=== PATIENT | male | born 1975 | race Caucasian/White ===

== ENCOUNTER 2020-12-07 00:56 | Observation (INO) | payer BC ==
--- OUTSIDE RECORDS SUMMARY | 2020-12-07 00:59 | XMS REPORT | Continuity of Care Document ---
:1975 Author Organization [facility] t Address [address] [place] [address] Care Team Providers Name Role Phone Martinez Suh Attending Clinician Patience Cantu Attending Clinician MS Mela CEE Attending Clinician Unavailable MS Mela CEE Admitting Clinician Unavailable Problems Condition Condition Condition Status Onset Resolution Last Treating Co mments Source Name Details Category Date Date Treatment Clinician Date UNK Diagnosis Active 2020-11-30 Mem oria 2-09 06:53:00 l UNK 00:00: [place] 00 Active 11/10/2020 [place] N20.0 Diagnosis Active 2020-11-11 Mem oria 2-04 10:10:00 l N20.0 00:00: Ian 00 Active 11/05/2020 [place] N20 - Diagnosis Active 2019-102020-10-03 Mem oria CALCULUS 1-25 15:55:00 l OF KIDNEY N20 - 00:01: Ryan n AND URETER CALCULUS 00 599. OF KIDNEY AND URETER 599. Active 08/26/2020 OPID [facility] Benign Problem Resolve 2020-12-07 Wily guzman hypertensi d 01:42:28 l ve renal Benign Ryan n disease hypertensi (disorder) ve renal disease (disorder) [facility] Active 2020-12-07 Memor ia stone 01:42:28 l (disorder) Kidney Herm cristin stone (disorder) Active Problem 12/07/2020 Medical [facility] Leukemia, Problem Active 2020-12-07 Me moria disease 01:42:28 l (disorder) Ryan n Leukemia, disease (disorder) Active Problem 12/07/2020 Medical [facility] Sleep Problem Active 2020-12-07 Memor ia apnea 01:42:28 l (finding) Sleep Ryan n apnea (finding) Active Problem 12/07/2020 Medical Group[facility] Allergies, Adverse Reactions, Alerts Allergy Allergy Status Severity Reaction(s) Onset Inactive Treating Comm ents Source Name Type Date Date Clinician No Known No Known Active Memori a Medicati Medicati l on on Ian Allergie Allergie s s Social History Social Habit Start Date Stop Date Quantity Comments Source Social History 2020-11-30 2020-11-30 [facility] 13:50:43 13:50:43 Medications Ordered Filled Start Stop Current Ordering Indication Dosage Frequency Signature Comments Components Source Medication Medication Date Date Medication? Clinician (SIG) Name Name ciprofloxac Yes 500 mg = 1 Memoria in 500 mg 3-05 tab, PO, l oral tablet 15:48: Q12H, for ermann 00 UTI, X 3 day, # 6 tab, 0 Refill(s), Pharmacy: [facility] Pharm[facility] [place], 180.34, cm, 11/11/20 15:17:00 CAR REPOSSESSOR, Height, 101.96, kg, 11/11/20 15:17:00 CAR REPOSSESSOR, Weight Ketorolac No 10 mg = 1 Mem oria Tromethamin 3-05 tab, PO, l e 10 MG 15:48: TID, X 2 Ryan n Oral Tablet 00 day, # 6 tab, 0 Refill(s), Pharmacy: [facility], 180.34, cm, 11/11/20 15:17:00 CAR REPOSSESSOR, Height, 101.96, kg, 11/11/20 15:17:00 CAR REPOSSESSOR, Weight Oxycodone No 10 mg, Memori a Hydrochlori 3-01 Route: PO, l de 5 MG 16:31: Drug form: Herm cristin Oral Tablet 00 TAB, ONCE, Dosing Weight 101.96, kg, PRN Pain Score 7-10, Start date: 11/30/20 10:31:00 CAR REPOSSESSOR oxybutynin Yes 10 mg = 1 Me moria 10 mg oral 3-01 tab, PO, l tablet, 15:47: Daily, # Ryan n extended 00 30 tab, 0 release Refill(s), Pharmacy: [facility], 180.34, cm, 11/11/20 15:17:00 CAR REPOSSESSOR, Height, 101.96, kg, 11/11/20 15:17:00 CAR REPOSSESSOR, Weight Docusate Yes 100 mg = 1 Mem oria Sodium 100 3 cap, PO, l MG Oral 15:47: BID, PRN Ryan n Capsule 00 Constipati [Colace] on, # 20 cap, 0 Refill(s), Pharmacy: [facility] Pharmacy [place], 180.34, cm, 11/11/20 15:17:00 CAR REPOSSESSOR, Height, 101.96, kg, 11/11/20 15:17:00 CAR REPOSSESSOR, Weight fentaNYL No Route: IV, Mem oria (ANES) 11-30 Drug form: l 15:34: INJ, ONCE, [place] 00 Stop date: 11/30/20 9:34:00 CAR REPOSSESSOR propofol No Route: IV, Mem oria (ANES) 11-30 Drug form: l 15:34: INJ, ONCE, Ian 00 Stop date: 11/30/20 9:34:00 CAR REPOSSESSOR lidocaine No Route: IV, Me moria (ANES) 11-30 Drug form: l 15:34: INJ, ONCE, Ian 00 Stop date: 11/30/20 9:34:00 CAR REPOSSESSOR ciprofloxac No Route: IV, Memoria in (ANES) 11-30 Drug form: l 15:34: INJ, ONCE, Ian 00 Stop date: 11/30/20 9:34:00 CAR REPOSSESSOR ondansetron No Route: IV, Memoria (ANES) 11-30 Drug form: l 15:34: INJ, ONCE, [place] 00 Stop date: 11/30/20 9:34:00 CAR REPOSSESSOR midazolam No Route: IV, Me moria (ANES) 11-30 Drug form: l 15:29: SOLN, [place] 00 ONCE, Stop date: 11/30/20 9:29:00 CAR REPOSSESSOR Lactated No Route: IV, Mem oria Ringers 11-30 Total l Injection 14:48: Volume: Denisha nn IV (ANES) 00 1,000, 1000 mL Start date: 11/30/20 8:48:00 CAR REPOSSESSOR, Stop date: 11/30/20 9:48:00 CAR REPOSSESSOR Calcium No 1,000 mL, Memor ia Chloride 3 Rate: 75 l 0.0014 13:44: ml/hr, Ian MEQ/ML / 00 Infuse Potassium over: 13.3 Chloride hr, Route: 0.004 IV, Dosing MEQ/ML / Weight Sodium 101.818 Chloride kg, Total 0.103 Volume: MEQ/ML / 1,000, Sodium Start Lactate date: 0.028 11/30/20 MEQ/ML 7:44:00 Injectable CAR REPOSSESSOR, Solution Duration: 30 day, Stop date: 12/30/20 7:43:00 CDT, 2.28, m2 Acetaminoph No 1 - 2 tab, Memoria en 300 MG / 2-17 PO, Q6H, l Codeine 21:48: PRN Pain, Denisha nn Phosphate 00 X 3 day, # 30 MG Oral 28 tab, 0 Tablet Refill(s), [Tylenol Pharmacy: with [facility] Codeine #3] Pharmacy [place], 180.34, cm, 11/11/20 15:17:00 CAR REPOSSESSOR, Height, 101.818, kg, 11/11/20 15:17:00 CAR REPOSSESSOR, Weight oxybutynin No 10 mg = 1 Me moria 10 mg oral 2-17 tab, PO, l tablet, 21:48: Daily, # Ryan n extended 00 30 tab, 0 release Refill(s), Pharmacy: [facility] Pharm[place], 180.34, cm, 11/11/20 15:17:00 CAR REPOSSESSOR, Height, 101.818, kg, 11/11/20 15:17:00 CAR REPOSSESSOR, Weight Phenazopyri No 200 mg = 1 Memoria dine 2-10 tab, PO, l hydrochlori 21:28: TID, PRN He rmann de 200 MG 00 Dysuria, # Oral Tablet 6 tab, 0 [Pyridium] Refill(s) Ibuprofen 0 Yes PO, PRN, 0 Me moria 2-10 Refill(s) l 21:27: [place] 00 Ciprofloxac Yes 500 mg = 1 Memoria in 500 MG 2-09 tab, PO, l Oral Tablet 21:24: Q12H, for H sachinann [Cipro] 00 UTI, X 3 day, # 6 tab, 0 Refill(s), Pharmacy: [facility] Pharmacy [place], 180.34, cm, 11/06/20 10:12:00 CAR REPOSSESSOR, Height, 101.818, kg, 11/06/20 10:12:00 CAR REPOSSESSOR, Weight ondansetron No Route: IV, Memoria (ANES) 2 Drug form: l 19:51: INJ, ONCE, Stop date: 11/06/20 13:51:00 CAR REPOSSESSOR dexamethaso No Route: IV, Memoria ne (ANES) 2 Drug form: l 19:51: INJ, ONCE, Stop date: 11/06/20 13:51:00 CAR REPOSSESSOR fentaNYL No Route: IV, Mem oria (ANES) 11-06 Drug form: l 19:41: INJ, ONCE, Stop date: 11/06/20 13:41:00 CAR REPOSSESSOR propofol No Route: IV, Mem oria (ANES) 2- Drug form: l 19:41: INJ, ONCE, Stop date: 11/06/20 13:41:00 CAR REPOSSESSOR lidocaine No Route: IV, Me moria (ANES) 11-06 Drug form: l 19:41: INJ, ONCE, Stop date: 11/06/20 13:41:00 CAR REPOSSESSOR ciprofloxac No Route: IV, Memoria in (ANES) 11-06 Drug form: l 19:36: INJ, ONCE, Stop date: 11/06/20 13:36:00 CAR REPOSSESSOR Lactated No Route: IV, Mem oria Ringers 2-05 Total l Injection 19:00: Volume: Denisha nn IV (ANES) 00 1,000, 1000 mL Start date: 11/06/20 13:00:00 CAR REPOSSESSOR, Stop date: 11/06/20 14:00:00 CAR REPOSSESSOR LR IV 1,000 No 1,000 ml, M emoria ml 11-06 Rate: 25 l 16:29: ml/hr, Infuse over: 40 hr, Route: IV, Dosing Weight 101.818 kg, Total Volume: 1,000, Start date: 11/06/20 10:29:00 CAR REPOSSESSOR, Duration: 30 day, Stop date: 12/06/20 10:28:00 CAR REPOSSESSOR, 2.28, m2 imatinib Yes = 1 cap, Memor ia 400 mg oral 2-05 PO, Daily, l tablet 16:28: # 30 cap, Ryan n 00 0 Refill(s) Acetaminoph Yes 1 tab, PO, Memoria en 325 MG / 2-04 Q6H, PRN l Hydrocodone 20:24: for pain, H ermann Bitartrate 00 X 7 day, # 5 MG Oral 18 tab, 0 Tablet Refill(s), [[place] [facility]: ] [facility], 180.34, cm, 09/10/20 14:33:00 CAR REPOSSESSOR, Height, 103.182, kg, 09/10/20 14:33:00 CAR REPOSSESSOR, Weight Phenazopyri No 200 mg = 1 Memoria dine 2-04 tab, PO, l hydrochlori 20:24: TID, PRN He rmann de 200 MG 00 Dysuria, X Oral Tablet 2 day, # 6 [Pyridium] tab, 0 Refill(s), Pharmacy: [facility], 180.34, cm, 09/10/20 14:33:00 CAR REPOSSESSOR, Height, 103.182, kg, 09/10/20 14:33:00 CAR REPOSSESSOR, Weight oxybutynin Yes 5 mg = 1 Mem oria 5 mg oral 2-04 tab, PO, l tablet 20:24: TID, PRN Ian 00 Other-See Comments, # 30 tab, 0 Refill(s), Pharmacy: [facility], 180.34, cm, 09/10/20 14:33:00 CAR REPOSSESSOR, Height, 103.182, kg, 09/10/20 14:33:00 CAR REPOSSESSOR, Weight Docusate Yes 100 mg = 1 Mem oria Sodium 100 2-04 cap, PO, l MG Oral 20:24: BID, PRN Ryan n Capsule 00 Constipati [Colace] on, # 20 cap, 0 Refill(s), Pharmacy: [facility], 180.34, cm, 09/10/20 14:33:00 CAR REPOSSESSOR, Height, 103.182, kg, 09/10/20 14:33:00 CAR REPOSSESSOR, Weight imatinib 2019-10 Yes 100 mg, Memori a 1-24 PO, Daily, l 19:45: X 30 day, [place] 00 0 Refill(s) Vital Signs Vital Name Observation Time Observation Value Comments Source Systolic (mm Hg) 2020-11-30 17:00:00 Wily rial [place] Diastolic (mm Hg) 2020-11-30 17:00:00 Mem orial [place] Systolic (mm Hg) 2020-11-30 16:30:00 Wily rial [place] Diastolic (mm Hg) 2020-11-30 16:30:00 Mem orial [place] Systolic (mm Hg) 2020-11-30 16:15:00 Wily rial Ian Diastolic (mm Hg) 2020-11-30 16:15:00 Mem orial Ian Respitory Rate 2020-11-30 16:15:00 Memori al Ian Heart Rate 2020-11-30 16:15:00 Memorial Ian Respitory Rate 2020-11-30 16:00:00 Memori al Ian Heart Rate 2020-11-30 16:00:00 Memorial Ian Heart Rate 2020-11-30 15:49:00 Memorial Ian Respitory Rate 2020-11-30 15:49:00 Memori al Ian Weight 2020-11-30 13:52:00 Memorial Ian BMI Calculated 2020-11-30 13:52:00 Memori al [place] Height 2020-11-11 21:17:00 180.34 cm Memorial Ian Weight 2020-11-11 21:17:00 Memorial Ian BMI Calculated 2020-11-11 21:17:00 Memori al [place] Heart Rate 2020-11-06 21:10:00 [facility] [place] Respitory Rate 2020-11-06 21:10:00 Memori al Ian Systolic (mm Hg) 2020-11-06 21:10:00 Wily rial Ian Diastolic (mm Hg) 2020-11-06 21:10:00 Mem orial Ian Respitory Rate 2020-11-06 20:43:00 Memori al Ian Heart Rate 2020-11-06 20:43:00 Memorial [place] Systolic (mm Hg) 2020-11-06 20:43:00 Wily rial [place] Diastolic (mm Hg) 2020-11-06 20:43:00 Mem orial Ian Heart Rate 2020-11-06 20:30:00 [facility] [place] Respitory Rate 2020-11-06 20:30:00 Memori al [place] Systolic (mm Hg) 2020-11-06 20:30:00 Wily rial [place] Diastolic (mm Hg) 2020-11-06 20:30:00 Mem orial [place] Height 2020-11-06 16:12:00 180.34 cm Memorial Ian Weight 2020-11-06 16:12:00 Memorial Ian BMI Calculated 2020-11-06 16:12:00 Memori al Ian Height 2020-09-10 20:33:00 180.34 cm Memorial [place] Weight 2020-09-10 20:33:00 [facility] [place] BMI Calculated 2020-09-10 20:33:00 Memori al Ian Procedures Procedure Date / Time Performing Clinician Source Performed Cystourethroscopy, with 2020-12-04 15:49:00 Wily rial Ian removal of foreign body, calculus, or ureteral stent from urethra or bladder (separate procedure); simple Cystourethroscopy (separate 2020-11-10 21:22:00 [facility] [place] procedure) Appendectomy Memorial Ian Bariatric operative [facility] procedure Cystoscopy [facility] [place] Laparoscopic cholecystectomy [facility] orial [place] Lithotripsy [facility] Encounters Start End Encounter Admission Attending Care Care Encounter Source Date/Time Date/Time Type Type Clinicians Facility Department ID 2020-12-04 2020-12-04 Outpatient Hoggatt, [facility] [place] [id number] 09:30:00 23:59:59 [place]ton Syl Martinez 2020-11-30 2020-11-30 Outpatient [facility]att, [facility] MHSE [id number] 06:53:00 11:20:00 [place] Latrice Martinez 2020-11-30 2020-11-30 Outpatient [place], MHSE SE [id number] 09:00:00 09:00:00 [place] Latrice Martinez 2020-11-30 2020-11-30 Outpatient [facility] URO [id number] MH 06:53:00 06:53:[address] [facility] 2020-11-10 2020-11-10 Outpatient Hoggatt, [facility] MHMG [id number] 14:30:00 23:59:59 Layton 06 Martinez 2020-11-06 2020-11-06 Outpatient H[facility]att, MHSE MHSE [id number] 09:05:00 09:05:00 [place] 00 Martinez 2020-11-06 2020-11-06 Outpatient MH[facility] URO [id number] MH 09:05:00 09:05:[address] [facility] 2020-11-05 2020-11-05 Outpatient H[facility]att, [facility] MHMG [id number] 14:00:00 23:59:59 Lay[place] 05 Martinez 2020-10-29 2020-10-29 Outpatient [facility]att, [facility] MHMG [id number] 14:15:00 23:59:59 [place] 04 Martinez 2020-09-10 2020-09-10 Outpatient Pepe, [facility] MHMG [id number] 14:00:00 23:59:59 Trentronny Kenney 2020-09-01 2020-09-01 Outpatient [facility], [facility] MH[facility] [id number] 10:00:00 10:00:00 [place] 00 Martinez 2020-08-25 2020-08-25 Outpatient [facility], [facility] MH[facility] [id number] 14:00:00 23:59:59 Lay[place] 01 Martinez 2017-12-21 2017-12-21 Emergency E COLEMAN, [facility] [id number] [facility] 08:00:00 13:00:00 [facility] Results Test Description Test Time Test Comments Results Result Comments Source CHEM PANEL 2020-11-26 98 [facility] Denisha nn 19:22:00 CHEM PANEL 2020-11-26 14 [facility] Denisha nn 19:22:00 CHEM PANEL 2020-11-26 1.26 [facility] Denisha nn 19:22:00 CHEM PANEL 2020-11-26 140 [facility] Denisha nn 19:22:00 CHEM PANEL 2020-11-26 4.1 [facility] Denisha nn 19:22:00 CHEM PANEL 2020-11-26 106 [facility] Denisha nn 19:22:00 CHEM PANEL 2020-11-26 32 [facility] Denisha nn 19:22:00 CHEM PANEL 2020-11-26 9.4 [facility] Denisha nn 19:22:00 CHEM PANEL 2020-11-26 6.1 [facility] Denisha nn 19:22:00 CHEM PANEL 2020-11-26 68 [facility] Denisha nn 19:22:00 HEMATOLOGY 2020-11-26 60.5 [facility] Denisha nn 19:22:00 HEMATOLOGY 2020-11-26 24.5 [facility] Denisha nn 19:22:00 HEMATOLOGY 2020-11-26 11.3 [facility] Denisha nn 19:22:00 HEMATOLOGY 2020-11-26 2.3 [facility] Denisha nn 19:22:00 HEMATOLOGY 2020-11-26 1.4 [facility] Denisha nn 19:22:00 HEMATOLOGY 2020-11-26 3.2 [facility] Denisha nn 19:22:00 HEMATOLOGY 2020-11-26 1.3 [facility] Denisha nn 19:22:00 HEMATOLOGY 2020-11-26 0.6 [facility] Denisha nn 19:22:00 HEMATOLOGY 2020-11-26 0.1 [facility] Denisha nn 19:22:00 HEMATOLOGY 2020-11-26 0.1 [facility] Denisha nn 19:22:00 HEMATOLOGY 2020-11-26 5.3 [facility] Denisha nn 19:22:00 HEMATOLOGY 2020-11-26 4.04 [facility] Denisha nn 19:22:00 HEMATOLOGY 2020-11-26 13.0 [facility] Denisha nn 19:22:00 HEMATOLOGY 2020-11-26 39.3 [facility] Denisha nn 19:22:00 HEMATOLOGY 2020-11-26 97.2 [facility] Denisha nn 19:22:00 HEMATOLOGY 2020-11-26 19:22:00 Test Item Value Reference Range Interpretation Comme nts MCH (test code = MCH) 32.1 pg 27.0-31.0 Memorial CfdpoyiBICBHMUQVP8286-35-57 19:22:0033.0[facility] HermannHEMATOLOGY 2020-11-26 19:22:0013.8[facility] RolwaaaOQQVCMLVYU3055-48-09 19:22:91418Ahvzlvlm LiknbzmZPMFLILJWT3469-10-04 19:22:008.4[facility] JrqmjhuCAXKLUYSYO6088-25-72 19:22:00Not Detected *NA*(11/26/20 1:22 PM)[facility] NmpupdiCCIBKGFTZM6517-92-43 15:17:00Not Detected (11/06/20 9:17 AM)[facility] KujavdxPDVUUNYZAK5166-11-25 20:38:0010.3[facility] JakurnaCSHNGALGWG4491-41-39 20:38:129171Wvdzyhso Ian WVJBGCDYRO0890-68-36 20:38:38114Fvcywnzy DufzagkVEXQYVFYLX2027-35-63 20:38:57101 [facility] FgjycafUWAJLWCOWX9712-18-73 20:38:97556Gcdsvzxy HermannHEMATOLOGY 2020-11-05 20:38:0059[facility] BtubxfjWAPBCVGJQR3861-73-46 20:38:0058.7[facility] KxnhcuuQGHITUWBEO7851-96-22 20:38:0022.2[facility] MmzqudcULFEXAWOVX9541-10-32 20:38:0014.0[facility] XwjwermBORYCQEBZU8356-65-47 20:38:003.8[facility] Ian QIMDQXCRCT8825-95-19 20:38:001.3[facility] HermannCHEM DZKKX6549-75-53 20:38:0088 [facility] HermannCHEM DHLGF5147-08-19 20:38:0019[facility] HermannCHEM PANEL 2020-11-05 20:38:001.03[facility] HermannCHEM LZKTE7049-43-25 20:38:0087[facility] HermannCHEM SVLOA9767-51-12 20:38:41399Bnjgyocj HermannCHEM SZSJP8197-60-14 20:38:15947Gunalufc HermannCHEM URBOS8939-93-26 20:38:004.0[facility] HermannCHEM CCZOQ8144-49-64 20:38:32933Cjyikpth HermannCHEM CJOFS8663-26-64 20:38:0026 [facility] HermannCHEM NSXST5525-63-24 20:38:009.3[facility] HermannHEMATOLOGY 2020-11-05 20:38:004.5[facility] WntefchEJJSUCTXTW4719-74-82 20:38:004.05[facility] NiisicuQKSWGSICTK7039-79-11 20:38:0012.7[facility] XmotovlNVYYCPRVED5910-53-04 20:38:0038.5[facility] IlsmrnsDPAHJXUWFF1931-46-08 20:38:0095.1[facility] [place] [id number] 20:38:00 Test Item Value Reference Range Interpretation Comments MCH (test code = MCH) 31.4 pg 27.0-33.0 Memorial MqipobsMBKWPGQXXX1567-88-45 20:38:0033.0[facility] HermannHEMATOLOGY 2020-11-05 20:38:0012.6[facility] BpkctvkJXRPDBOWBX8231-71-73 20:38:94551Eryflawk HermannURINE AND VYXVC5460-64-07 21:06:00Amber *ABN*(10/29/20 3:06 PM)[facility]ann[facility] AND [id number] 21:06:00Slightly Cloudy *NA*(10/29/20 3:06 PM) [facility]ann[facility] AND [id number] 21:06:00>=1.030 *ABN*(10/29/20 3:06 PM)[facility]ann[facility] AND [id number] 21:06:00 Test Item Value Reference Range Interpretation Comments POC UA pH (test code = POC UA pH) 5.5 1 5.0-8.0 [facility]ann[facility] AND [id number] 21:06:00Negative *NA*(10/29/20 3:06 PM) [facility] [id number] 21:06:00Large *ABN*(10/29/20 3:06 PM) [facility] [id number] 21:06:000.2[facility]annUR[facility] AND [id number] 21:06:00Negative *NA*(10/29/20 3:06 PM)[facility]ann[facility] AND TYCBH7781-12-05 21:06:00Negative *NA*(10/29/20 3:06 PM)[facility] HermannCT ABDOMEN AND PELVIS WITH [id number] 11:25:51Dictation location D4 CT OF THE ABDOMEN AND PELVIS WITH CONTRASTCLINICAL HISTORY:R52: PAIN, UNSPECIFI EDCOMPARISON: An earlier study the same dayTECHNIQUE:5 mm contiguous axial images were obtained from the diaphragmatic dome throughthe symphysis pubis after the administration of 100 cc of Omnipaque 300intravenously. Delayed images through the kidneys and collecting systems andcoronal reformations were also obtained and reviewed. Patient's creatinine andGFR are normal. An up-to-date CT recommended radiation dose reduction techniquewas utilized.FINDINGS:Lung bases: ClearLiver: Fatty infiltrated withno focal mass.Gallbladder: RemovedSpleen: NormalPancreas: Normal nonobstructing stone in the right renal pelvis measuring 9 to10 mm in small left cortical renal cyst are stable. The bladder is intact.Ad renals: 4 x 3 cm high attenuation right adrenal mass with adjacent strandingappears stable. There isno abnormal enhancement in or around this lesion tosuggest active extravasation.Kidneys: Function symmetrically with stable small left cortical renal cyst andnonobstructing 10 mm stone in the right renal pelvis.Bladder is unremarkable.GI tract: Prior bariatric surgery. Multiple colonic diverticuli with noinflammatory change and no evidence for bowel obstruction or perforation. Theappendix is not seen. The abdominal wall is intact. Small hiatal hernia.Vascular structures: IntactPelvis and retroperiton eum: No abnormal mass or adenopathy. No fluidcollection.Osseous structures: UnremarkableImpression:1. Compared to an earlier study the same day. There is no abnormal enhancementin or around the right adrenal mass likely a hemorrhage with some surroundingfatty infiltration. Six-month follow-up recommended.2. No acute findings in the abdomen or pelvis with stable 10 mm stone in theright renal pelvis, nonobstructing.CT ABDOMEN AND PELVIS W/O [id number] 10:22:28Addendum:Homogeneous, slightly dense tubular enlargement of the right adrenal gland isseen and may represent uncomplicated hemorrhage of uncertain age. Thesurrounding fat is unaffected.URINALYSIS WITH [id number] 09:41:00 Test Item Value Reference Range Interpretation Comments COLOR (test code = COLU) YELLOW YELLOW CLARITY (test code = CLA) CLEAR CLEAR GLUCOSE UR (test code = UA GLUCOSE) NEGATIVE NEGATIVE BILI UR (test code = BILE) NEGATIVE NEGATIVE KETONES UR (test code = BIJAL) NEGATIVE NEGATIVE SP GRAVITY (test code = SPGR) 1.018 1.005-1.030 PH UR (test code = PH) 6.0 4.5-8.0 PROTEIN UR (test code = PU) TRACE NEGATIVE A UROBIL UR (test code = UROQ) 1.0 EU/dL 0.2-1.0 NITRITE UR (test code = NITRITE) NEGATIVE NEGATIVE BLOOD UR (test code = UA BLOOD) 3+ NEGATIVE A LEUK ES UR (test code = LEUK) NEGATIVE NEGATIVE WBC UR (test code = UWBC) 0 /HPF 0-3 RBC UR (test code = URBC) 12 /HPF 0-2 H EPITH UR (test code = UEPC) NONE /LPF NONE BACTERIA UR (test code = UBACT) NONE /HPF NONE CAST UR (test code = CAST) /LPF NONE CRYSTAL UR (test code = CRYU) / LPF NONE MUCUS UR (test code = MUC) / HPF NONE AMORPH UR (test code = CHRISTOS) / HPF NONE TRICH UR (test code = UTRICH) /HPF NONE YEAST UR (test code = UY) /HPF NONE SPERM UR (test code = USPERM) /HPF NONE COMPREHENSIVE METABOLIC [id number] 09:07:00 Test Item Value Reference Range Interpretation Comments GLUCOSE (test code = 06D) 120 mg/dL 75-100 H SODIUM (test code = 01A) 137 mmol/L 136-145 POTASSIUM (test code = 01B) 3.2 mmol/L 3.6-5.1 L CHLORIDE (test code = 04A) 101 mmol/L 98-107 CO2 (test code = 02A) 28 mmol/L 22-32 ANION GAP (test code = ANG) 11.2 mmol/L BUN (test code = 05D) 14 mg/dL 7-18 CREATININE (test code = 03E) 1.2 mg/dL 0.7-1.3 BUN/CREA (test code = BCR) 12 12-20 CALCIUM (test code = 09D) 8.6 mg/dL 8.3-9.5 BILI TOTAL (test code = 11A) 0.4 mg/dL 0.2-1.0 PROTEIN (test code = 07D) 7.5 g/dL 6.4-8.2 ALBUMIN (test code = 08D) 4.0 g/dL 3.5-4.8 GLOBULIN (test code = GLB) 3.5 g/dL 1.5-3.8 ALB/GLOB (test code = AGRR) 1.1 1.0-2.6 ALK PHOS (test code = 35A) 75 IU/L 42-121 AST (test code = 30A) 21 IU/L <=42 ALT (test code = 31A) 23 IU/L <=78 AMYLASE AND [id number] 09:07:00 Test Item Value Reference Range Interpretation Comments AMYLASE (test code = 10A) 62 U/L 28-100 LIPASE (test code = 60A) 151 IU/L 73-393 CBC (INCLUDES AUTOMATED DIFFERENTIAL)2017-12-21 08:51:00 Test Item Value Reference Range Interpretation Comments WBC (test code = WBC) 5.1 10\S\3/uL 4.5-11.0 RBC (test code = RBC) 4.17 10\S\6/uL 4.30-5.70 L HGB (test code = HBG) 13.0 g/dL 14.0-18.0 L HCT (test code = HCT) 40.0 % 35.0-46.0 MCV (test code = MCV) 95.9 fL 80.0-94.0 H MCH (test code = MCH) 31.2 pg 27.0-31.0 H MCHC (test code = MCHC) 32.5 g/dL 32.0-36.0 RDW (test code = RDW) 13.5 % 11.5-14.5 PLT (test code = PLT) 168 10\S\3/uL 130-400 MPV (test code = MPV) 9.9 fL 9.4-12.4 NEUTROP # (test code = NE#) 3.3 10\S\3/uL 2.0-8.0 LYMPH # (test code = LY#) 1.1 10\S\3/uL 1.2-4.0 L MONOCYTE # (test code = MO#) 0.5 10\S\3/uL 0.0-1.1 EOSINOPH # (test code = EO#) 0.1 10\S\3/uL 0.0-0.7 BASOPHIL # (test code = BA#) 0.1 10\S\3/uL 0.0-0.3 IG # (test code = IG#) 0.03 10\S\3/uL 0.00-0.06 NRBC # (test code = NRBC#) 0.00 10\S\3/uL 0.00-0.01 NEUTROPH % (test code = NE%) 64.5 % 35.0-73.0 LYMPH % (test code = LY%) 21.9 % 20.0-55.0 MONO % (test code = MO%) 9.6 % 2.5-10.0 EOSINOPH % (test code = EO%) 2.2 % 0.0-5.0 BASOPHIL % (test code = BA%) 1.2 % 0.0-2.0 IG % (test code = IG%) 0.6 % 0.0-0.8 NRBC% (test code = NRBC%) 0.0 % 0.0-0.2 MANDIFF (test code = MDIFF) NO NO RBC MORPH (test code = RBCMOR) NORMAL
[2020-12-07 01:39] LABS: Absolute Lymphocytes (CBC) 1.5 K/uL (0.7-4.9); Basophils % 1.1 % (0-1.3); Hematocrit 37.9 % (39.6-49.0); Lymphocytes % 27.3 % (15.3-44.8); MPV 8.4 fL (7.6-11.3); RBC Red Blood Cell Count 3.93 M/uL (4.33-5.43)
[2020-12-07 01:41] LABS: Protime INR 0.89
[2020-12-07 01:45] LABS: BUN Blood Urea Nitrogen 17 mg/dL (7-18); Bicarbonate 28 mmol/L (21-32); Glucose Level 92 mg/dL (74-106); Potassium 3.8 mmol/L (3.5-5.1); Sodium Level 140 mmol/L (136-145)
--- NOTE | 2020-12-07 02:03 | EDPHYS ---
Physician Documentation [facility] Name: Yumiko Aquino Age: 45 yrs Sex: Male : 1975 Arrival Date: 12/07/2020 Time: 00:59 Bed 20 Private MD: ROSANNA Physician Esau Rod HPI: 12/07 01:55 This 45 yrs old Male presents to ER via Ambulatory with complaints of mh7 TINGLING AND NUMBNESS IN LEFT ARM. 01:55 The patient presents to the emergency department with paresthesias of the left upper mh7 extremity, that is moderate. Onset: The symptoms/episode began/occurred today, at 00:00. Context: occurred at home, occurred while the patient was sitting. Associated signs and symptoms: Pertinent negatives: altered mental status, chills, dizziness, fever, headache, nausea, neck stiffness, seizure, syncope, near-syncope, blurred vision, double vision, visual field changes, loss of vision, weakness. Severity of symptoms: At their worst the symptoms were moderate today, in the emergency department the symptoms have improved markedly. Patient's baseline: Neuro: alert and fully oriented, Motor: no deficits, Ambulation: walks without assistance, Speech: normal. Current symptoms: Currently, the patient is not experiencing any symptoms. Historical: - Allergies: 01:14 No Known Allergies; rr5 - PMHx: 01:14 Hypertension; Leukemia; rr5 - PSHx: 01:14 Kidney stents; laparoscpic band; tonsilectomy; Appendectomy; rr5 - Immunization history:: Adult Immunizations up to date. - Social history:: Smoking status: unknown. ROS: 01:55 Constitutional: Negative for fever, chills, and weight loss, Eyes: Negative for injury, mh7 pain, redness, and discharge, ENT: Negative for injury, pain, and discharge, Neck: Negative for injury, pain, and swelling, Cardiovascular: Negative for chest pain, palpitations, and edema, Respiratory: Negative for shortness of breath, cough, wheezing, and pleuritic chest pain, Abdomen/GI: Negative for abdominal pain, nausea, vomiting, diarrhea, and constipation, Back: Negative for injury and pain, : Negative for injury, bleeding, discharge, and swelling, Skin: Negative for injury, rash, and discoloration, Psych: Negative for depression, anxiety, suicide ideation, homicidal ideation, and hallucinations, Allergy/Immunology: Negative for hives, rash, and allergies, Endocrine: Negative for neck swelling, polydipsia, polyuria, polyphagia, and marked weight changes, Hematologic/Lymphatic: Negative for swollen nodes, abnormal bleeding, and unusual bruising. Exam: 01:55 Constitutional: This is a well developed, well nourished patient who is awake, alert, mh7 and in no acute distress. Head/Face: Normocephalic, atraumatic. Eyes: Pupils equal round and reactive to light, extra-ocular motions intact. Lids and lashes normal. Conjunctiva and sclera are non-icteric and not injected. Cornea within normal limits. Periorbital areas with no swelling, redness, or edema. Neck: Trachea midline, no thyromegaly or masses palpated, and no cervical lymphadenopathy. Supple, full range of motion without nuchal rigidity, or vertebral point tenderness. No Meningismus. Chest/axilla: Normal chest wall appearance and motion. Nontender with no deformity. No lesions are appreciated. Cardiovascular: Regular rate and rhythm with a normal S1 and S2. No gallops, murmurs, or rubs. Normal PMI, no JVD. No pulse deficits. Respiratory: Lungs have equal breath sounds bilaterally, clear to auscultation and percussion. No rales, rhonchi or wheezes noted. No increased work of breathing, no retractions or nasal flaring. Abdomen/GI: Soft, non-tender, with normal bowel sounds. No distension or tympany. No guarding or rebound. No evidence of tenderness throughout. Back: No spinal tenderness. No costovertebral tenderness. Full range of motion. Skin: Warm, dry with normal turgor. Normal color with no rashes, no lesions, and no evidence of cellulitis. MS/ Extremity: Pulses equal, no cyanosis. Neurovascular intact. Full, normal range of motion. Neuro: Awake and alert, GCS 15, oriented to person, place, time, and situation. Cranial nerves II-XII grossly intact. Motor strength 5/5 in all extremities. Sensory grossly intact. Cerebellar exam normal. Normal gait. Psych: Awake, alert, with orientation to person, place and time. Behavior, mood, and affect are within normal limits. Vital Signs: 01:09 BP 138 / 67; Pulse 71; Resp 18; Pulse Ox 98% on R/A; mg2 01:22 Weight 99.79 kg; Height 5 ft. 11 in. (180.34 cm); em 02:03 BP 133 / 81; Pulse 84; Resp 17; Temp 98.3; Pulse Ox 99% ; rr5 01:22 Body Mass Index 30.68 (99.79 kg, 180.34 cm) em NIH Stroke Scale Scores: :55 NIHSS Score: 0 mh7 MDM: 01:55 Data reviewed: vital signs, nurses notes, lab test result(s), CBC, electrolytes, mh7 urinalysis, EKG, radiologic studies, CT scan, plain films. Data interpreted: Pulse oximetry: on room air is 98 %. Interpretation: normal. Counseling: I had a detailed discussion with the patient and/or guardian regarding: the historical points, exam findings, and any diagnostic results supporting the discharge/admit diagnosis, the presence of at least one elevated blood pressure reading (>120/80) during this emergency department visit, lab results, radiology results, the need for further work-up and treatment in the hospital. Response to treatment: the patient's symptoms have markedly improved after treatment. Physician consultation: Miko Vuong MD was contacted at 01:45, regarding patient's condition, and will see patient in inpatient room, would like admission per Dr. Alfredo Le MD. 02:02 Patient medically screened. 7 12/07 01:12 Order name: Basic Metabolic Panel; Complete Time: 02:23 mg2 12/07 01:12 Order name: CBC with Diff; Complete Time: :46 mg2 12/07 01:12 Order name: Protime (+inr); Complete Time: :46 mg2 12/07 01:12 Order name: Ptt, Activated; Complete Time: :46 mg2 12/07 01:35 Order name: Glucose, Ancillary Testing; Complete Time: :46 EDMS 12/07 01:12 Order name: CT Stroke Brain w/o Contrast mg2 12/07 01:12 Order name: Stroke CXR 1 View mg2 12/07 01:55 Order name: Troponin (Emerg Dept Use Only); Complete Time: 02:23 EDMS 12/07 01:57 Order name: COVID-19 : Document "Date of Symptom Onset" if Symptomatic. tt3 12/07 01:58 Order name: CORONAVIRUS EDMS 12/07 03:30 Order name: SARS-COV-2 RT PCR EDMS 12/07 01:12 Order name: EKG; Complete Time: 01:13 mg2 12/07 01:12 Order name: Accucheck; Complete Time: mg2 12/07 01:12 Order name: Cardiac monitoring; Complete Time: mg2 12/07 01:12 Order name: EKG - Nurse/Tech; Complete Time: mg2 12/07 01:12 Order name: IV Saline Lock; Complete Time: mg2 12/07 01:12 Order name: Labs collected and sent; Complete Time: mg2 12/07 01:12 Order name: NPO; Complete Time: mg2 12/07 01:12 Order name: O2 Per Protocol; Complete Time: mg2 12/07 01:12 Order name: O2 Sat Monitoring; Complete Time: mg2 12/07 01:12 Order name: Stroke Swallow Screen; Complete Time: : mg2 Administered Medications: 02:17 Drug: Aspirin Chewable Tablet 162 mg Route: PO; rr5 03:13 Follow up: Response: No adverse reaction rr5 02:37 Drug: Atorvastatin 40 mg Route: PO; rr5 03:13 Follow up: Response: No adverse reaction rr5 02:37 Drug: foLIC Acid 1 mg Route: PO; rr5 03:13 Follow up: Response: No adverse reaction rr5 02:37 Drug: NS 0.9% 500 ml Route: IV; Rate: bolus; Site: right antecubital; rr5 03:13 Follow up: Response: No adverse reaction; IV Status: Completed infusion; IV Intake: rr5 500ml 03:13 Drug: NS 0.9% 1000 ml Route: IV; Rate: 125 ml/hr; Site: right antecubital; rr5 03:43 Follow up: Response: No adverse reaction; IV Status: Infusion continued upon admission; rr5 IV Intake: 250ml Disposition: 12/07/20 02:02 Hospitalization ordered by Alfredo Le for Observation. Preliminary diagnosis is Paresthesias. - Bed requested for Telemetry/MedSurg (observation). - Status is Observation. mg2 - Condition is Stable. - Problem is new. - Symptoms have improved. NIH Stroke Scale - NIH Stroke Score Date: 12/07/2020 Time: 01:55 Total Score = 0 1a. Level of Consciousness (LOC) - 0(Alert) 1b. Level of Consciousness (LOC) (Year \\T\\ Age) - 0(Both) 1c. LOC Commands (Open \\T\\ Closes Eyes/Retail Center Receptionist) - 0(Both) 2. Best Gaze (Lateral Gaze Paresis) - 0(Normal) 3. Visual Field Loss - 0(No visual loss) 4. Facial Palsy - 0(Normal) 5a. Left Arm: Motor (10-second hold) - 0(No drift) 5b. Right Arm: Motor (10-second hold) - 0(No drift) 6a. Left Leg: Motor (5-second hold - always test supine) - 0(No drift) 6b. Right Leg: Motor (5-second hold - always test supine) - 0(No drift) 7. Limb Ataxia (finger/nose \\T\\ heel/andrews - test with eyes open) - 0(Absent) 8. Sensory Loss (pinprick arms/legs/face) - 0(Normal) 9. Best Language: Aphasia (description/naming/reading) - 0(No aphasia) 10. Dysarthria (speech clarity - read or repeat words) - 0(Normal) 11. Extinction and Inattention (visual/tactile/auditory/spatial/personal) - 0(No abnormality) Initials: [facility] Signatures: Dispatcher [employer] EDMS Kalia Montiel, CAN PUSHER-C CAN PUSHER-Cla1 Hussein Allen RN RN mg2 Alfredo Luis RN RN rr5 Esau Rod MD MD 7 Fernando Krause tt3 Corrections: (The following items were deleted from the chart) :55 01:53 TROPONIN (EMERG DEPT USE ONLY)+C.LAB.BRZ ordered. EDAL EDMS 03:40 02:02 Hospitalization Ordered by Alfredo Le MD for Observation. Preliminary tt3 diagnosis is Paresthesias. Bed requested for Telemetry/MedSurg (observation). Status is Observation. Condition is Stable. Problem is new. Symptoms have improved. mh7 04:30 03:40 12/07/2020 02:02 Hospitalization Ordered by Alfreod Le MD for mg2 Observation. Preliminary diagnosis is Paresthesias. Bed requested for Telemetry/MedSurg (observation). Status is Observation. Condition is Stable. Problem is new. Symptoms have improved. tt3
--- NOTE | 2020-12-07 02:03 | ER ---
Nurse's Notes [facility] Name: Yumiko Aquino Age: 45 yrs Sex: Male : 1975 Arrival Date: 12/07/2020 Time: 00:59 Bed 20 Private MD: Diagnosis: Paresthesias Presentation: 12/07 01:09 Chief complaint: Patient states: woke up \T\ midnight with left arm numbness and tingling mg2 sensation. 01:09 Method Of Arrival: Ambulatory mg2 01:09 Coronavirus screen: Client denies travel out of the [place] in the last 14 days. Ebola mg2 Screen: No symptoms or risks identified at this time. Initial Sepsis Screen: Does the patient meet any 2 criteria? No. Patient's initial sepsis screen is negative. Does the patient have a suspected source of infection? No. Patient's initial sepsis screen is negative. Risk Assessment: Do you want to hurt yourself or someone else? Patient reports no desire to harm self or others. Onset of symptoms. 01:09 Acuity: ESTHER 2 mg2 Triage Assessment: 01:30 General: Appears in no apparent distress. comfortable, Behavior is calm, cooperative. mg2 Pain: Denies pain. Historical: - Allergies: 01:14 No Known Allergies; rr5 - PMHx: 01:14 Hypertension; Leukemia; rr5 - PSHx: 01:14 Kidney stents; laparoscpic band; tonsilectomy; Appendectomy; rr5 - Immunization history:: Adult Immunizations up to date. - Social history:: Smoking status: unknown. Screenin:14 Abuse screen: Denies threats or abuse. Denies injuries from another. Nutritional mg2 screening: No deficits noted. Tuberculosis screening: No symptoms or risk factors identified. Fall Risk IV access (20 points). 01:50 VAN Screening: Arm Drift: Patient shows no arm weakness. Patient is VAN negative. rr5 02:05 Patient has been NPO before screening. The patient is alert, able to follow commands. rr5 The patient does not exhibit slurred or garbled speech The patient is not exhibiting difficulty speaking. The patient does not exhibit difficulty understanding words. The patient is able to swallow own secretions with no drooling or need for suction. Patient tolerated one teaspoon of water. No drooling, immediate coughing, gurgling, or clearing of the throat was noted. The patient tolerated 90mL of water. No drooling, immediate coughing, gurgling, or clearing of the throat was noted. The patient passed the bedside swallow screening. Oral medications may be given as ordered. Contact Physician for further diet orders. Provider notified of bedside swallow screening results: Esau Rod MD. Assessment: 01:13 General: sent to CT. Code stroke callled. mg2 01:25 General: Appears in no apparent distress. uncomfortable, Behavior is calm, cooperative, rr5 appropriate for age. 01:25 Pain: Denies pain. Neuro: Level of Consciousness is awake, alert, obeys commands, rr5 Oriented to person, place, time, situation, Speech is normal, Facial symmetry appears normal, Reports numbness in left arm. Cardiovascular: Capillary refill < 3 seconds Patient's skin is warm and dry. Respiratory: Airway is patent Respiratory effort is even, unlabored, Respiratory pattern is regular, symmetrical. GI: No signs and/or symptoms were reported involving the gastrointestinal system. : Parent/caregiver report the patient having previous bilateral kidney stent. EENT: No signs and/or symptoms were reported regarding the EENT system. Derm: Skin is intact, is healthy with good turgor, Skin temperature is warm. Musculoskeletal: Capillary refill < 3 seconds, Reports numbness in left arm. 01:50 Reassessment: reassess by ED provider negative, for admission. rr5 02:00 Reassessment: hospitalist at bedside. rr5 02:39 Reassessment: Patient appears in no apparent distress at this time. Patient is alert, rr5 oriented x 3, equal unlabored respirations, skin warm/dry/pink. no complaints made awaiting for covid result, for admission. Vital Signs: 01:09 BP 138 / 67; Pulse 71; Resp 18; Pulse Ox 98% on R/A; mg2 01:22 Weight 99.79 kg; Height 5 ft. 11 in. (180.34 cm); em 02:03 BP 133 / 81; Pulse 84; Resp 17; Temp 98.3; Pulse Ox 99% ; rr5 01:22 Body Mass Index 30.68 (99.79 kg, 180.34 cm) em NIH Stroke Scale Scores: 01:55 NIHSS Score: 0 mh7 ED Course: 00:59 Patient arrived in ED. es 01:09 Esau Rod MD is Attending Physician. mh7 01:13 Alfredo Luis, GAVINO is Primary Nurse. rr5 01:14 Triage completed. mg2 01:15 Patient has correct armband on for positive identification. monitoring specialist on. Pulse mg2 ox on. NIBP on. 01:15 No provider procedures requiring assistance completed. mg2 01:20 Inserted saline lock: 20 gauge in right antecubital area, using aseptic technique. mg2 Blood collected. 01:21 EKG done, by ED staff, reviewed by Esau Rod MD. rr5 01:25 CT Stroke Brain w/o Contrast In Process Unspecified. EDMS 01:30 Door closed. mg2 01:30 Arm band placed on. mg2 01:43 Stroke CXR 1 View In Process Unspecified. EDMS 02:02 Alfredo Le MD is Hospitalizing Provider. mh7 04:30 Patient admitted, IV remains in place. mg2 Administered Medications: 02:17 Drug: Aspirin Chewable Tablet 162 mg Route: PO; rr5 03:13 Follow up: Response: No adverse reaction rr5 02:37 Drug: Atorvastatin 40 mg Route: PO; rr5 03:13 Follow up: Response: No adverse reaction rr5 02:37 Drug: foLIC Acid 1 mg Route: PO; rr5 03:13 Follow up: Response: No adverse reaction rr5 02:37 Drug: NS 0.9% 500 ml Route: IV; Rate: bolus; Site: right antecubital; rr5 03:13 Follow up: Response: No adverse reaction; IV Status: Completed infusion; IV Intake: rr5 500ml 03:13 Drug: NS 0.9% 1000 ml Route: IV; Rate: 125 ml/hr; Site: right antecubital; rr5 03:43 Follow up: Response: No adverse reaction; IV Status: Infusion continued upon admission; rr5 IV Intake: 250ml Intake: 03:13 IV: 500ml; Total: 500ml. rr5 03:43 IV: 250ml; Total: 750ml. rr5 Outcome: 02:02 Decision to Hospitalize by Provider. mh7 04:29 Admitted to Med/surg accompanied by tech, via stretcher, room 222, with chart, Report mg2 called to GAVINO Calvillo 04:29 Condition: stable 04:29 Instructed on the need for admit, Demonstrated understanding of instructions. 04:30 Patient left the ED. mg2 NIH Stroke Scale - NIH Stroke Score Date: 12/07/2020 Time: 01:55 Total Score = 0 1a. Level of Consciousness (LOC) - 0(Alert) 1b. Level of Consciousness (LOC) (Year \T\ Age) - 0(Both) 1c. LOC Commands (Open \T\ Closes Eyes/Cruise Consultant) - 0(Both) 2. Best Gaze (Lateral Gaze Paresis) - 0(Normal) 3. Visual Field Loss - 0(No visual loss) 4. Facial Palsy - 0(Normal) 5a. Left Arm: Motor (10-second hold) - 0(No drift) 5b. Right Arm: Motor (10-second hold) - 0(No drift) 6a. Left Leg: Motor (5-second hold - always test supine) - 0(No drift) 6b. Right Leg: Motor (5-second hold - always test supine) - 0(No drift) 7. Limb Ataxia (finger/nose \T\ heel/andrews - test with eyes open) - 0(Absent) 8. Sensory Loss (pinprick arms/legs/face) - 0(Normal) 9. Best Language: Aphasia (description/naming/reading) - 0(No aphasia) 10. Dysarthria (speech clarity - read or repeat words) - 0(Normal) 11. Extinction and Inattention (visual/tactile/auditory/spatial/personal) - 0(No abnormality) Initials: [facility] Signatures: Dispatcher [employer] Ann-Marie Urbina Edgar, RN RN Hussein Allen RN RN [facility] Alfredo Luis RN RN rr5 Esau Rod MD MD [facility]
[2020-12-07 02:19] LABS: Troponin (Emerg Dept Use Only) < 0.02 ng/mL (0.0-0.045)
[2020-12-07] MEDS ORDERED: ASPIRIN 81 MG CHEWABLE TABLET ONE (02:24)
[2020-12-07] MEDS ORDERED: ATORVASTATIN 20 MG TAB ONE (02:46)
[2020-12-07] MEDS ORDERED: FOLIC ACID 1 MG TABLET ONE (02:46)
[2020-12-07] MEDS ORDERED: NA CHLORIDE 0.9% 1,000 ML ONE (02:47)
--- NOTE | 2020-12-07 02:53 | P.HP ---
Certification for Inpatient Patient admitted to: Observation With expected LOS: <2 Midnights Patient will require the following post-hospital care: None Practitioner: I am a practitioner with admitting privileges, knowledge of patient current condition, hospital course, and medical plan of care. Services: Services provided to patient in accordance with Admission requirements found in Title 42 Section 412.3 of the Code of Federal Regulations <Kalia Montiel - Last Filed: 12/07/20 02:49> Patient History Date of Service: 12/07/20 Primary Care Provider: Dr. Judd Pham Reason for admission: Left upper extremity paresthesia History of Present Illness: 45-year-old male with history of hypertension, leukemia presents emergency department for left upper extremity paresthesia. Patient reports going to bed at approximately 10:00 p.m. last night feeling normal and waking up shortly before midnight with numbness/tingling from his left shoulder to his left wrist, patient reports that the tingling numbness has resolved up to just above his elbow but still having the numbness tingling to the shoulder/upper arm area. Patient was evaluated in the ER, CT head without contrast negative for any acute findings. Labs significant for creatinine 1.47, hemoglobin 12.5 hematocrit 37.9. Neurology was consulted who recommended observation admit for further evaluation and management. When I saw the patient in the emergency room he is awake, alert, oriented x3. No focal neurological deficits noted, patient with intact sensation in all extremities. Will admit under observation for further evaluation and management. 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 12/07/20 Atorvastatin Calcium [Lipitor] 40 mg PO BEDTIME 30 Days #30 tab 12/07/20 Folic Acid 1 mg PO DAILY 30 Days #30 tablet 12/07/20 Review of Systems 10-point ROS is otherwise unremarkable General: Malaise Gastrointestinal: Diarrhea Neurological: As per HPI <Kalia Montiel - Last Filed: 12/07/20 02:49> Physical Examination - Physical Exam General: Alert, In no apparent distress HEENT: Atraumatic, PERRLA, Mucous membr. moist/pink, EOMI, Sclerae nonicteric Neck: Supple, 2+ carotid pulse no bruit, No LAD, Without JVD or thyroid abnormality Respiratory: Clear to auscultation bilaterally, Normal air movement Cardiovascular: Regular rate/rhythm, Normal S1 S2 Gastrointestinal: Normal bowel sounds, No tenderness Musculoskeletal: No tenderness Integumentary: No rashes Neurological: Normal gait, Normal speech, Normal strength at 5/5 x4 extr, Normal tone, Sensation intact, Cranial nerves 3-12 intact, Normal affect - Studies Laboratory Data (last 24 hrs) 12/07/20 01:25: PT 10.2, INR 0.89, APTT 28.2 12/07/20 01:25: WBC 5.60, Hgb 12.5 L, Hct 37.9 L, Plt Count 148 L 12/07/20 01:25: Sodium 140, Potassium 3.8, BUN 17, Creatinine 1.47 H, Glucose 92 <Kalia Montiel - Last Filed: 12/07/20 02:49> Assessment and Plan - Plan Assessment Left upper extremity paresthesia Hypertension Leukemia Plan Left upper extremity paresthesia: No objective focal neurological deficits present, paresthesia to the left shoulder, upper arm area but sensation to touch intact. Continue with daily aspirin, statin, folic acid, neurology consult in place. MRI in the morning. Monitor on telemetry, trend troponin levels. DVT prophylaxis Lovenox 40 mg subcutaneous once daily. Lipid panel and thyroid panel with morning labs. Hypertension: Patient reports he has previously on low-dose hydrochlorothiazide but was taken off the after significant weight loss, will continue to monitor blood pressures and adjust medications as necessary. Leukemia: Patient takes daily oral chemotherapy agent, will continue this. Discharge Plan: Home Plan to discharge in: 24 Hours - Advance Directives Does patient have a Living Will: No Does patient have a Durable POA for Healthcare: No - Code Status/Comfort Care Code Status Assessed: Yes (Full code) Critical Care: No Time Spent Managing Pts Care (In Minutes): 55 <Kalia Montiel - Last Filed: 12/07/20 02:49> - Plan Plan of care reviewed as noted above by Kalia Montiel. Patient seen / examined in AM on 12/07. LUE paresthesia improved, however, focal area over lateral shoulder / deltoid region still remains. Discussed with Neuro. Awaiting MRI results to r/o CVA <Alfredo Le - Last Filed: 12/10/20 09:33>
[2020-12-07 04:49] VITALS: BMI 31.1
[2020-12-07] MEDS ORDERED: ONDANSETRON 4 MG/2 ML VIAL IV PRN (05:06)
[2020-12-07] MEDS ORDERED: ACETAMINOPHEN 500 MG TAB PO PRN (05:06)
[2020-12-07 05:07] VITALS: O2SAT 98
[2020-12-07] MEDS: NA CHLORIDE 0.9% 1,000 ML IV SCH ×2 (06:11→13:06)
[2020-12-07 06:54] LABS: Urine Appearance CLEAR; Urine Bilirubin NEGATIVE (NEG); Urine Blood 1+ (NEG); Urine Color YELLOW; Urine Glucose NEGATIVE (NEG); Urine Protein NEGATIVE (NEG); Urine Urobilinogen 0.2 mg/dL (0.2-1.0); Urine pH 7.5 (5.0-7.0)
[2020-12-07 07:58] LABS: Urine Microscopic Reflex ORDER UMIC
--- NOTE | 2020-12-07 08:22 | RAD REPORT ---
EXAM DESCRIPTION: RAD - Chest Single View - 12/07/2020 1:43 am CLINICAL HISTORY: numbness, left-sided chest and arm numbness and tingling COMPARISON: May 2016 TECHNIQUE: AP portable chest image was obtained 12/07/2020 1:43 am . FINDINGS: Lungs are clear. Heart and vasculature are normal. No measurable pleural effusion and no p neumothorax. No acute bony abnormality seen. No acute aortic findings suspected. IMPRESSION: No acute cardiopulmonary process. No significant change from comparison study.
[2020-12-07] MEDS ORDERED: INFLUENZA VACCINE (for 3y+) 0.5 ML DOSE IMVAC ONE (09:00)
[2020-12-07] MEDS ORDERED: ASPIRIN EC 81 MG TAB PO SCH (09:00)
[2020-12-07] MEDS ORDERED: ENOXAPARIN 40 MG/0.4 ML SQ SCH (09:00)
[2020-12-07 09:03] LABS: Urine Amorphous Sediment 1+ /HPF (NONE SEEN); Urine Bacteria <20 /HPF (NONE SEEN)
[2020-12-07 09:36] LABS: Magnesium 2.1 mg/dL (1.8-2.4); Troponin I < 0.02 ng/mL (0.0-0.045)
--- NOTE | 2020-12-07 12:31 | RAD REPORT ---
EXAM DESCRIPTION: MRI - MRA Neck W/Wo Cont - 12/07/2020 12:21 pm CLINICAL HISTORY: Stroke-like symptoms, left-sided arm numbness COMPARISON: None TECHNIQUE: MR angiography of the cervical vasculature performed. Coronal imaging plane acquisition u tilized. A 20 MultiHance contrast volume was utilized. Coronal reformatted images were generated and reviewed. Vertical axis 3D rotational projections obtained using maximum intensity projection protoco l. FINDINGS: Aortic arch is 3 vessel configuration with no great vessel or vertebral artery origin sten osis. No dissection, stenosis or focal luminal narrowing identified in the carotid and vertebral cerv ical vasculature. Vertebral arteries are codominant. There is tortuosity of the basilar and distal ve rtebral arteries. IMPRESSION: Unremarkable contrast enhanced MRA neck examination.
--- NOTE | 2020-12-07 12:34 | RAD REPORT ---
EXAM DESCRIPTION: MRI - MRA Head Wo Cont - 12/07/2020 12:21 pm CLINICAL HISTORY: Stroke-like symptoms, left arm numbness COMPARISON: CT head same date, MRI brain same date TECHNIQUE: Axial and coronal 3D [id number] image acquisition was performed. 3D rotational images were generated with source and reconstruction images reviewed. Horizontal and vertical axis rotation al views generated using MIP protocol. FINDINGS: No aneurysm or vascular malformation identified. No vasculitis or diffuse vascular process identifiable. No named branch occlusion identifiable. Patient has a prominent right posterior commun icating artery as a normal variant. Focal narrowing is present at the right anterior cerebral artery A1 -P2 junction. Exam does have sanjuanita on degradation limitation in this focal narrowing may be artifact. Finding is more pronounced on kiara nstruction 3D rotational images than seen on the static axial views. Major venous sinuses are patent. IMPRESSION: MRA head examination has motion degradation limitations as detailed. No significant vasc ular finding confirmed.
--- NOTE | 2020-12-07 12:37 | RAD REPORT ---
EXAM DESCRIPTION: MRI - Brain W/Wo Cont - 12/07/2020 12:21 pm CLINICAL HISTORY: LUE PARESTHESIA, stroke-like symptoms COMPARISON: MRA Head Wo Cont dated 12/07/2020; MRA Neck W/Wo Cont dated 12/07/2020T head December 07 TECHNIQUE: Sagittal and axial T1-weighted images were obtained. Axial PD/heavily T2-weighted and T2- FLAIR images were obtained along with axial DWI/ADC mapping sequences. Coronal heavily T2 weighted s equence obtained. Axial and coronal post-contrast T1-weighted images were also obtained. A 20 ml Mul tihance contrast following utilized. FINDINGS: No intracranial hemorrhage, mass or acute infarction. There is no edema or shift of midli ne structures. No extra-axial fluid collections. Hernández-matter/white matter junction is preserved. Sig nal voids are seen as a normal finding in the major intracranial vessels. No sella or supra sella abn ormality. No globe or orbital content abnormality seen. Post-contrast images show normal enhancement. No dural thickening. Mastoid air cells and paranasal sinuses are clear. IMPRESSION: Negative contrast enhanced MRI of the Brain.
--- NOTE | 2020-12-07 13:04 | RAD REPORT ---
EXAM DESCRIPTION: CT - Ct Stroke Brain Wo Cont - 12/07/2020 5:03 am CLINICAL HISTORY: 45 years Male left-sided numbness and tingling TECHNIQUE: Multiple axial CT images of the brain were performed followed by sagittal and coronal rec onstructed images. The CT study is performed according to ALARA (as low as reasonably achievable) or ALARA/IMAGE GENTLY, with automatic adjustment of mA and/or kV according to patient size. Performed on: 12/07/2020 at 1:16 AM Comparisons: 11/21/2011. FINDINGS: Brain: There is no evidence of mass, acute mass effect or midline shift. There are no acut e extra-axial fluid collections. There is no evidence of acute intracranial hemorrhage. The cerebra l sulci and ventricles are normal in size and configuration. There are no focal abnormal areas of inc reased or decreased attenuation. There is no evidence of a hyperdense MCA. Paranasal Sinuses and Mastoids: There is no significant mucosal thickening of the paranasal sinuses. The mastoid air cells are clear. Orbits: The orbital contents are grossly unremarkable. Bones: No acute osseous abnormalities are identified. Soft Tissues: No focal soft tissue abnormalities are identified. IMPRESSION: There is no evidence of acute intracranial pathology. Electronically signed by: Bela Fields DO 12/07/2020 1:34 AM SHUT OFF WORKER Due to temporary technical issues with the PACS/Fluency reporting system, reports are being signed by the in house radiologists without review as a courtesy to insure prompt reporting. The interpreting radiologist is fully responsible for the content of the report.
[2020-12-07 13:11] VITALS: BP 135/86; TEMP 98.3
[2020-12-07 14:51] LABS: ALT/SGPT 20 U/L (12-78); AST/SGOT 18 U/L (15-37); Albumin 3.5 g/dL (3.4-5.0); Alkaline Phosphatase 70 U/L (45-117); BUN Blood Urea Nitrogen 14 mg/dL (7-18); Bicarbonate 27 mmol/L (21-32); Bilirubin Total 0.7 mg/dL (0.2-1.0); Glucose Level 95 mg/dL (74-106); Potassium 3.9 mmol/L (3.5-5.1); Protein, Total 6.4 g/dL (6.4-8.2); Sodium Level 140 mmol/L (136-145); Troponin I < 0.02 ng/mL (0.0-0.045)
[2020-12-08] MEDS ORDERED: FOLIC ACID 1 MG TABLET PO SCH (09:00)
[2020-12-08] MEDS ORDERED: ATORVASTATIN 40 MG TAB PO SCH (21:00)
--- NOTE | 2020-12-10 11:01 | P.DS ---
Admission Date: 12/07/20 Discharge Date: 12/07/20 Primary Care Provider: Dr. Judd Pham Disposition: ROUTINE DISCHARGE Discharge Condition: GOOD Reason for Admission: Left upper extremity paresthesia Consultations: Neurology - Dr. Vuong Procedures: CXR (12/07): No acute cardiopulmonary process CT brain (12/07): no evidence of acute intracranial pathology. MRI Brain (12/07): Negative contrast enhanced MRI of the Brain. MRA Brain (12/07): MRA head examination has motion degradation limitations as detailed. No significant vascular finding confirmed. MRA Neck (12/07): Unremarkable contrast enhanced MRA neck examination. Vertebral arteries are codominant. There is tortuosity of the basilar and distal vertebral arteries. Problem List: Left upper extremity paresthesia ANUPAMA without CKD Hypertension Leukemia Brief History of Present Illness: 45-year-old male with history of hypertension, leukemia presents emergency department for left upper extremity paresthesia. Patient reports going to bed at approximately 10:00 p.m. last night feeling normal and waking up shortly before midnight with numbness/tingling from his left shoulder to his left wrist, patient reports that the tingling numbness has resolved up to just above his elbow but still having the numbness tingling to the shoulder/upper arm area. Patient was evaluated in the ER, CT head without contrast negative for any acute findings. Labs significant for creatinine 1.47, hemoglobin 12.5 hematocrit 37.9. Neurology was consulted who recommended observation admit for further evaluation and management. Hospital Course: Yumiko had further improvement of his paresthesia, with only a small area on his shoulder / deltoid region remaining. He underwent MRI stroke evaluation which was negative. His case was reviewed with Neurology, who recommended discharge home with aspirin, folic acid, and statin. He should follow up with PCP within 3-5 days, and follow up with Dr. Vuong (neurology) in the next few weeks - for further evaluation of possible peripheral nerve issue. EMG / nerve conduction study in the near future were discussed with the patient. His Cr was 1.47 on admission and concerning due to recent surgery / stent removal, however, the patient also reported decreased PO intake prior to admission. He was treated with IV fluids and had significant improvement of his creatinine down to 0.98 Vital Signs/Physical Exam: Physical Exam General: Alert, In no apparent distress HEENT: Atraumatic, PERRLA, EOMI, Sclerae nonicteric Neck: Supple, 2+ carotid pulse no bruit, No LAD, Without JVD or thyroid abnormality Respiratory: Clear to auscultation bilaterally, Normal air movement Cardiovascular: Regular rate/rhythm, Normal S1 S2 Gastrointestinal: Normal bowel sounds, No tenderness Musculoskeletal: No tenderness Integumentary: No rashes Neurological: Normal gait, Normal speech, Normal strength at 5/5 x4 extr, Normal tone, Cranial nerves II-XII grossly intact, Normal affect mild diminished sensation to light touch over L ajay-lateral shoulder / deltoid region. Temp Pulse Resp BP Pulse Ox 98.3 F 63 18 135/86 99 12/07/20 12:00 12/07/20 12:00 12/07/20 12:00 12/07/20 12:00 12/07/20 12:00 Laboratory Data at Discharge: WBC 5.60 K/uL (4.3-10.9) 12/07/20 01:25 Hgb 12.5 g/dL (13.6-17.9) L 12/07/20 01:25 Hct 37.9 % (39.6-49.0) L 12/07/20 01:25 Plt Count 148 K/uL (152-406) L 12/07/20 01:25 PT 10.2 SECONDS (9.5-12.5) 12/07/20 01:25 INR 0.89 12/07/20 01:25 APTT 28.2 SECONDS (24.3-36.9) 12/07/20 01:25 Sodium 140 mmol/L (136-145) 12/07/20 14:18 Potassium 3.9 mmol/L (3.5-5.1) 12/07/20 14:18 BUN 14 mg/dL (7-18) 12/07/20 14:18 Creatinine 0.98 mg/dL (0.55-1.3) 12/07/20 14:18 Glucose 95 mg/dL (74-106) 12/07/20 14:18 Magnesium 2.1 mg/dL (1.8-2.4) 12/07/20 08:09 Total Bilirubin 0.7 mg/dL (0.2-1.0) 12/07/20 14:18 AST 18 U/L (15-37) 12/07/20 14:18 ALT 20 U/L (12-78) 12/07/20 14:18 Alkaline Phosphatase 70 U/L (45-117) 12/07/20 14:18 Troponin I < 0.02 ng/mL (0.0-0.045) 12/07/20 14:18 Home Medications: Imatinib Mesylate [Gleevec] 400 mg PO DAILY 08/21/14 Aspirin [Aspirin EC 81 MG] 81 mg PO DAILY 30 Days #30 tablet. 12/07/20 Atorvastatin Calcium [Lipitor] 40 mg PO BEDTIME 30 Days #30 tab 12/07/20 Folic Acid 1 mg PO DAILY 30 Days #30 tablet 12/07/20 New Medications: Aspirin [Aspirin EC 81 MG] 81 mg PO DAILY 30 Days #30 tablet. Folic Acid 1 mg PO DAILY 30 Days #30 tablet Atorvastatin Calcium [Lipitor] 40 mg PO BEDTIME 30 Days #30 tab Physician Discharge Instructions: You left arm numbness was evaluated for a possible stroke by CT, MRI, and MRA. These were all normal / negative for any stroke, mass, or lesion. Your symptoms may be caused by a peripheral nerve issue. It is recommended that you follow up with Dr. Vuong in the next few weeks to undergo further testing. You are discharged with aspirin 81mg, folic acid, and atorvastatin. Diet: Regular Activity: Ad martir Followup: Miko Vuong MD [ASSOCIATE-ACTIVE - CAN ADMIT] - NONE,NONE [Primary Care Provider] - Time spent managing pt's care (in minutes): 45
== END 2020-12-07 16:16 | disposition home or self-care (01) ==
LOC: ER 00:56 → ERHOLD 02:19 → 2ND 03:50
PROVIDERS: ADMIT Hospitalist; ATTEND Hospitalist
DX: R20.2 Paresthesia of skin (principal); C95.90 Leukemia, unspecified not having achieved remission; N17.9 Acute kidney failure, unspecified; I10 Essential (primary) hypertension; Z87.891 Personal history of nicotine dependence; Z20.822 Contact with and (suspected) exposure to COVID-19; R94.31 Abnormal electrocardiogram [ECG] [EKG]
CPT/HCPCS: 93005; 85025; 80048; 36415; 83735; 85610; 82947; 85730; 84443; 84484 ×3; 80053; 70450; 71045; 90471; 70553; 70544; 70549; 96360; 99285; U0003; A9577; Q2035; J7030 ×2; G0378 ×2; 81003; 81015; J1650